=== PATIENT | male | born 1980 | race Caucasian/White ===

== ENCOUNTER 2025-01-28 15:42 | Emergency (ER) | payer MEDICAID ==
[~2025-01-28] VITALS: Ht 180.3 cm; Wt 93.2 kg
[2025-01-28 15:47] VITALS: TEMP 98.5
[2025-01-28] MEDS ORDERED: OMEP40CA21 PO (16:51)
[2025-01-28 17:30] VITALS: BP 104/74
[2025-01-28 18:13] VITALS: PULSE 98; RESP 14; O2SAT 98
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
== END 2025-01-28 18:22 | disposition left against medical advice (07) ==
LOC: ER 15:44
DX: S06.0X9A Concussion with loss of consciousness of unspecified duration, initial encounter (principal); Z79.899 Other long term (current) drug therapy; Y08.89XA Assault by other specified means, initial encounter; Y93.89 Activity, other specified; Y92.89 Other specified places as the place of occurrence of the external cause; Y99.8 Other external cause status
CPT/HCPCS: 36415; 80320; 99284